=== PATIENT | male | born 1950 | race Caucasian/White ===

== ENCOUNTER → 2018-10-02 08:05 | Outpatient (CLI) | payer MEDICARE, MEDICAID ==
[~2018-10-02 08:05] MED LIST: ALDACTONE25 MG PO; COREG12.5 MG PO; COZAAR100 MG PO; FUROSEMIDE40 MG PO; LIPITOR20 MG PO
[2018-10-11 11:53] VITALS: BMI 34.9
== END | disposition home or self-care (01) ==
LOC: D.HCCARDIO 08:05
PROVIDERS: ATTEND Internal Medicine Cardiovascular Disease
DX: I20.9 Angina pectoris, unspecified (principal)

== ENCOUNTER 2018-10-11 10:55 | Outpatient (CLI) | payer MEDICARE, MEDICAID ==
[~2018-10-11] VITALS: Ht 175.3 cm; Wt 107.3 kg
--- NOTE | ~2018-10-11 | HEMODYNAMI ---
PATIENT:PRAVIN HAMILTON MEDICAL RECORD: [id number] : 52 LOCATION:[facility] ADMISSION DATE: 10/11/18 Generatedon:10/11/201814:38 Patient name: PRAVIN HAMILTON Patient #: [id number] SSN: [id number] : 1950 Date of study: 10/11/2018 Page: Of Hemodynamic Procedure Report Patient Data Patient Demographics Procedure consent was obtained First Name: PRAVIN Gender: Male Last Name: JOY : 1950 Patient #: [id number] Age: 68 year(s) Race: SSN: [id number] Additional ID: [id number] Contact details [address]: [address] [place] [address] State: [place] City: [place] Zip code: [address] Past Medical History Performed procedures and imaging results Date Procedure Procedure Results Comments Stress testing with Positive SPECT MPI Allergies: No allergy information Admission Admission Data Admission Date: 10/11/2018 Admission Time: 10:55 Height (in.): 68.9 BSA: 2.21 (m2) Height (cm.): 175 BMI: 34.94 (kg/m2) Weight (lbs.): 235.9 Weight (kg.): 107 Lab Results Lab Result Date: 10/11/2018 Lab Result Time: 0:00 Biochemistry Name Units Result Min Max BUN mg/dl 18 --(---*)-- 7 18 Creatinine mg/dl 1.1 --(--*-)-- 0.6 1.3 eGFR ml/min 70.99447 *-(----)-- 90 120 NONAFRICAN CBC Name Units Result Min Max Hematocrit % 41.4 -*(----)-- 42 54 Hemoglobin g/dl 14.6 --(-*--)-- 13.5 17.5 Procedure Procedure Types Cath Procedure Diagnostic Procedure C LH w/Coronaries Sedation Charges Moderate Sedation up to 15 minutes Procedure Description Procedure Date Procedure Date: 10/11/2018 Procedure Start Time: 14:15 Procedure End Time: 14:35 Procedure Staff Name Function Pratikkaran Mannley RT Scrub Carlos Alberto Heard RN Nurse Charlie Clark MD Performing Physician Mary Grace Chacon RT Monitor Cesia Gayle RT Scrub Susanne Rivera RT Monitor Procedure Data Cath Procedure Fluoroscopy Diagnostic fluoroscopy Total fluoroscopy Time: 5.1 time: 5.1 min min Diagnostic fluoroscopy Total fluoroscopy dose: dose: 1132 mGy 1132 mGy Contrast Material Contrast Material Type Amount (ml) Isovue 300 113 Entry Location Entry Primary Successful Side Size Upsize Upsize Entry Closure Arana ccessful Closure Location (Fr) 1 (Fr) 2 (Fr) Remarks Device Remarks Radial Right 6 Fr Mechanical artery Short Compression Estimated blood loss: 5 ml Diagnostic catheters Device Type Used For End Catheter Placement DIAGNOSTIC [place] 110cm 5 Procedure Fr catheter ([id number]) DIAGNOSTIC JL 3.5 5Fr Multi-vessel catheter ([id number]) Angiography DIAGNOSTIC AR MOD 5Fr Right Coronary Catheter ([id number]) Angiography Procedure Complications No complications Procedure Medications Medication Administration Route Dosage Oxygen etCO2 Nasal cannula 2 l/min Zofran I.V. 4 mg Lidocaine 2% added to field 20 Heparin Flush Bag added to field 2 bags (1000units/500ml NS) 0.9% NaCl I.V. 100 ml/hr Radial Cocktail I.A. 1 syringe (Verapamil 2mg/Nitro 400mcg/Heparin 1500units) Versed I.V. 2 mg Fentanyl I.V. 100 mcg Fentanyl I.V. 25 mcg Hemodynamics Rest BSA: 2.21 (m2) HGB: 14.6 (g/dl) O2 Consumption: Estimated: 252.02 (ml/min) O2 Co nsumption indexed: Estimated:114.04 (ml/min/m) Heart Rate: 64 (bpm) Pressure Samples Time Site Value (mmHg) Purpose Heart Use Rate(bpm) 14:19 LV 129/17,17 Snapshot 75 14:20 LV 121/5,8 Pullback 77 14:20 AO 204/135(129) Pullback 77 Gradients Valve Time Site 1 Site 2 Mean SEP/DFP Peak To Heart Use (mmHg) (sec/min) Peak Rate (mmHg) (bpm) Aortic 14:20 LV AO 0 77 121/5,8 204/135(129) Calculations Valve P-P Mean Valve Index Valve Source Name Gradient Area Flow (cm2) Aortic 0 0 Snapshots Pre Cath Intra NCS Post Cath Vital Signs Time Heart Resp SPO2 etCO2 NIBP (mmHg) Rhythm Pain Sedation Rate (ipm) (%) (mmHg) Status Level (bpm) 14:05:04 63 20 97 41.8 168/94(129) NSR 0 (11) 10(A) , No pain 14:09:30 60 18 96 26.1 154/93(134) NSR 0 (11) 10(A) , No pain 14:13:59 61 39 95 16.4 149/94(122) NSR 0 (11) 10(A) , No pain 14:18:27 65 15 95 35.1 160/99(113) NSR 0 (11) 9(A) , No pain 14:23:02 70 14 94 38.1 155/99(119) NSR 0 (11) 9(A) , No pain 14:27:32 77 16 92 36.6 165/103(123) NSR 0 (11) 9(A) , No pain 14:32:15 74 18 96 34.3 168/80(147) NSR 0 (11) 10(A) , No pain Medications Time Medication Route Dose Verified Delivered Reason Notes Effectiveness by by 14:05:04 Oxygen etCO2 2 l/min Charlie Carcamo used for Nasal St Saad Heard RN procedure cannula 14:05:11 Zofran I.V. 4 mg Charlie Carcam[address] Per St Saad ramires MD 14:05:21 Lidocaine 2% added 20ml Charlie Guerra for local to vial [facility] anesthetic field MD ALLAN 14:05:27 Heparin Flush added 2 bags Charlie Guerra used for Bag to [facility] procedure (1000units/500ml field MD ALLAN NS) 14:05:37 0.9% NaCl I.V. 100 Charlie Carcamo Per ml/hr St Saad ramires MD 14:14:27 Versed I.V. 2 mg Charlie Carcamo for sedation St Saad Heard RN, MD 14:14:34 Fentanyl I.V. 100 mcg Charlie Carcamo for sedation St Saad Heard RN, MD 14:18:31 Fentanyl I.V. 25 mcg Charlie Carcamo for sedation St Saad Heard RN, MD 14:18:39 Radial Cocktail I.A. 1 Charlie Charlie for (Verapamil syringe Eduardo Eduardo vasodilation 2mg/Nitro MD ALLAN 400mcg/Hepari Procedure Log Time Note 13:19:08 Informed consent obtained and on chart 13:20:47 Time tracking: Regular hours (M-F 7:00 - 5:00) 13:20:52 Plan of Care:Hemodynamics will remain stable., Cardiac rhythm will remain stable., Comfort level will be maintained., Respiratory function will remain adequate., Patient/ family verbilizes understanding of procedure., Procedure tolerated without complication., Recovers from procedure without complications.. 13:24:09 Patient allergic to No allergy information 13:28:25 Procedure Status Elective Heart Cath (OP). 13:39:58 Patient Weight : 235.9 lbs 13:40:17 Patient Height : 68.9 inches 13:40:46 Lab Result : Hemoglobin 14.6 g/dl 13:40:46 Lab Result : Hematocrit 41.4 % 13:40:46 Lab Result : eGFR NONAFRICAN 70.25435 ml/min 13:40:46 Lab Result : BUN 18 mg/dl 13:40:46 Lab Result : Creatinine 1.1 mg/dl 13:43:24 Carlos Alberto Heard RN sent for patient. Start room use. 13:53:37 Patient received from Pre/Post Procedure Room to CCL 1 Alert and oriented. Tansferred to table in Supine position. 13:53:38 Correct patient and procedure confirmed by team. 13:53:38 Warm blankets applied, and jovana hugger turned on for patient comfort. 13:53:39 ECG and BP/O2 sat monitors applied to patient. 14:03:33 Vital chart was started 14:03:35 Baseline sample Acquired. 14:03:40 Rhythm: sinus rhythm 14:03:41 Full Disclosure recording started 14:03:55 H&P Date Dictated: 09/24/2018 Within 30 days and on chart., H&P Addendum completed by physician on day of procedure. (MUST COMPLETE FOR ALL OUTPATIENTS). 14:03:58 Pre-procedure instructions explained to patient. 14:03:59 Pre-op teaching completed and patient verbalized understanding. 14:04:06 Patient NPO since Midnight. 14:04:08 Family in patients room. 14:04:11 Is patient on blood thinner?No 14:04:21 Patient diabetic? No. 14:04:56 Previous problem with sedation/anesthesia? Yes NAUSEA AT TIMES 14:04:59 Snore? Yes 14:05:00 Sleep apnea? No 14:05:04 Oxygen 2 l/min etCO2 Nasal cannula was administered by Carlos Alberto Heard RN; used for procedure; 14:05:11 Zofran 4 mg I.V. was administered by Carlos Alberto Heard RN; Per physician; 14:05:21 Lidocaine 2% 20ml vial added to field was administered by Charlie Clark MD; for local anesthetic; 14:05:27 Deviated septum? No 14:05:27 Heparin Flush Bag (1000units/500ml NS) 2 bags added to field was administered by Charlie Clark MD; used for procedure; 14:05:34 Opens mouth fully? Yes 14:05:35 Sticks out tongue? Yes 14:05:37 0.9% NaCl 100 ml/hr I.V. was administered by Carlos Alberto Heard RN; Per physician; 14:05:40 Airway obstruction? No ASTHMA 14:05:45 Dentures? No ? 14:05:48 Modified Paolo's test Ulnar < 7 seconds 14:05:49 Patient pain scale 0/10 ?. 14:06:00 IV patent on arrival in left hand with 0.9% NaCl at [facility]. 14:06:02 Lab results completed and on chart. 14:06:05 Right Radial & Right Groin area was prepped with chlora-prep and draped in sterile fashion 14:06:06 Sharps counted by scrub and verified by R.N. 14:06:06 Alarms reviewed by R. N. 14:06:11 Use device set Radial Dx or PCI 14:06:13 Bag Decanter (2001S) opened to sterile field. 14:06:13 ACIST Syringe (51842) opened to sterile field. 14:06:14 Tegaderm 4 x 4 (1626W) opened to sterile field. 14:06:14 ACIST Manifold (24249) opened to sterile field. 14:06:14 ACIST Hand Control (23721) opened to sterile field. 14:06:16 Medline Cath Pack ([id number]) opened to sterile field. 14:06:17 MBrace Wrist Support ([id number]) opened to sterile field. 14:06:18 SHEATH 6FR RAIN (6298436) opened to sterile field. 14:06:18 EMERALD Guide Wire (240-128) opened to sterile field. 14:12:43 Zero performed for pressure channel P1 14:12:45 --------ALL STOP TIME OUT------ 14:12:46 Final Timeout: patient, procedure, and site verified with staff and physician. All members of the team are in agreement. 14:12:58 Right Radial & Right Groin site verified by team. 14:13:02 Fire Safety Assessment: A--An alcohol-based skin anteseptic being used preoperatively., C--Open oxygen or nitrous oxide is being used., D--An ESU, laser, or fiber-optic light is being used. 14:13:14 2) 60-89 Mildly reduced kidney function, and other findings (as for stage 1) point to kidney disease. 14:13:27 Physical assessment completed. ASA score P 2 - A patient with mild systemic disease as per Charlie Clark MD. 14:13:30 Maximum allowable contrast dose (3.7 X eGFR X 0.75)186 ml. 14:13:33 Sedation plan: IV Moderate Sedation Medication:Versed, Fentanyl 14:14:27 Versed 2 mg I.V. was administered by Carlos Alberto Heard RN; for sedation; 14:14:34 Fentanyl 100 mcg I.V. was administered by Carlos Alberto Heard RN; for sedation; 14:15:23 Procedure started. 14:15:34 Local anesthetic to right radial artery with Lidocaine 2% by Charlie Clark MD.INITIAL ACCESS ONLY 14:17:53 A 6 Fr Short sheath was inserted into the Right Radial artery 14:17:56 A DIAGNOSTIC [place] 110cm 5 Fr catheter ([id number]) was advanced over the wire and used for Procedure. 14:18:31 Fentanyl 25 mcg I.V. was administered by Carlos Alberto Heard RN; for sedation; 14:18:39 Radial Cocktail (Verapamil 2mg/Nitro 400mcg/Heparin 1500units) 1 syringe I.A. was administered by Charlie Clark MD; for vasodilation; 14:19:55 LV gram done using FLOR 14:20:00 Injector settings: Ml/sec: 7, Volume: 15, 14:20:07 LV hemodynamics recorded. 14:20:18 EF : 50 % 14:22:19 LCA angiography performed. 14:23:30 UNABLE TO ENGAGE LCA AND RCA 14:23:31 Catheter exchanged over wire. 14:24:55 A DIAGNOSTIC JL 3.5 5Fr catheter ([id number]) was advanced over the wire and used for Multi-vessel Angiography. 14:25:26 LCA angiography performed. 14:25:29 Injector settings: Ml/sec: 3, Volume: 6, 14:27:52 Catheter removed. 14:28:08 A DIAGNOSTIC AR MOD 5Fr Catheter ([id number]) was advanced over the wire and used for Right Coronary Angiography. 14:30:00 RCA angiography performed. 14:30:03 Injector settings: Ml/sec: 3, Volume: 6, 14:30:22 Catheter removed. 14:31:40 TR BAND Large ([id number]) opened to sterile field. 14:31:49 Sheath removed intact; hemostasis achieved with Mechanical Compression to the Right Radial artery. 14:31:51 Procedure ended.(Physican Out) 14:32:09 Fluoroscopy time 05.10 minutes. 14:32:14 Fluoroscopy dose: 1132 mGy 14:32:14 Flurop Dose total: 1132 14:32:23 Dose Area Product 48396 mGy/cm. 14:32:33 Contrast amount:Isovue 300 113ml. 14:32:35 Sharps counted by scrub and verified by R.N. 14:32:37 Insertion/operative site no bleeding no hematoma. 14:32:43 TR band inflated with 10cc of air. 14:32:50 Post right radial artery:stable 14:32:53 Post Procedure Pulses reassessed and unchanged 14:32:56 Post procedure rhythm: unchanged. 14:32:59 Estimated blood loss: 5 ml 14:33:04 Post procedure instruction explained to patient.Patient verbalizes understanding. 14:33:05 Patient needs reinforcement of post procedure teaching. 14:33:16 Procedure type changed to Cath procedure, Diagnostic procedure, LHC, LHC w/Coronaries, Sedation Charges, Moderate Sedation up to 15 minutes 14:33:17 Procedure and supply charges have been captured, reviewed, submitted and are correct. 14:33:22 Procedure Complication : No complications 14:33:25 Vital chart was stopped 14:33:26 See physician's report for complete and final results. 14:33:34 Report given to Pre/Post Procedure Room. 14:35:04 Patient transfered to Pre/Post Procedure Room with Stretcher. 14:35:06 Full Disclosure recording stopped 14:35:06 Procedure ended. 14:35:12 End room use (Document Last) Device Usage Item Name Manufacture Quantity Catalog Hospital Part Current Minima l Lot# / Number Charge Number Stock Stock Serial# Code ACIST Acist 1 56302 [id number] 246299 981644 20 Syringe Medical (84241) Systems Inc Bag Microtek 1 2001S 303648 27268 656885 5 Decanter Medical Inc. (2001S) ACIST Hand Acist 1 89256 397363 265083 862377 5 Control Medical (38726) Systems Inc ACIST Acist 1 08623 394037 000768 994599 5 Manifold Medical (28702) Systems Inc Tegaderm 4 3M 1 1626W 936926 258830 452487 5 x 4 (1626W) Medline Medline 1 [id number] 691859 65415 574608 5 Cath Pack ([id number]) MBrace Advanced 1 140-0250-00 419364 41831 644919 5 Wrist Vascular Support Dynamics ([id number]) EMERALD Cardinal 1 502-455 755822 880383 013874 5 Guide Wire Health (502455) SHEATH 6FR Cardinal 1 1691038 056144 6778954 768676 5 [facility] (1547162) DIAGNOSTIC Terumo 1 40-5013 971199 351312 976104 5 [place] 110cm 5 Fr catheter (214553) DIAGNOSTIC Cardinal 1 [id number] 462333 863672 225182 5 JL 3.5 5Fr Health catheter (391184X) DIAGNOSTIC Cardinal 1 [id number] 388175 835721 192066 15 AR MOD 5Fr Health Catheter (017152W) TR BAND Terumo 1 [id number] 258125 164956 234113 40 Large ([id number]) Signature Audit [place] Stage Time Signature Unsigned Intra-Procedure 10/11/2018 Susanne Miguel 2:38:06 PM RT(R) Signatures Nurse : Carlos Alberto Heard RN Signature : Date : Time : Performing Physician : Signature : Charlie Eduardo MD Date : Time : Monitor : Mary Grace Chacon Signature : RT Date : Time : Monitor : Susanne Miguel RT Signature : Date : Time : [address] [place] [address]
[2018-10-11] MEDS ORDERED: LIPITOR20 MG PO (11:43)
[2018-10-11] MEDS ORDERED: COZAAR100 MG PO (11:43)
[2018-10-11] MEDS ORDERED: FUROSEMIDE40 MG PO (11:43)
[2018-10-11] MEDS ORDERED: COREG12.5 MG PO (11:43)
[2018-10-11 11:53] VITALS: BP 178/93; Ht 175.3 cm; Wt 107.3 kg
[2018-10-11 12:18] LABS: BASOPHILS 0.3 % (0-2); EOSINOPHILS 3.7 % (0-7); HEMATOCRIT 41.4 % (42.0-54.0); HEMOGLOBIN 14.6 g/dL (13.5-17.5); IMMATURE GRANULOCYTES 0.3 % (0-5); LYMPHOCYTES 27.9 % (15-50); MCH 31.5 pg (26.0-34.0); MCHC 35.3 g/dL (31.0-37.0); MCV 89.2 fL (80.0-100.0); MEAN PLATELET VOLUME 10.7 fL (7.4-10.4); MONOCYTES 11.2 % (2-11); NEUTROPHILS 56.6 % (40-80); PLATELET COUNT 223 10x3/uL (130-400); RBC 4.64 10x6/uL (4.20-6.10); RDW 12.6 % (11.5-14.5); WBC 6.2 10x3/uL (4.8-10.8)
[2018-10-11 12:35] LABS: CHOL - HDL RATIO 3.9 ratio (2.3-4.9); LDL-HDL RATIO 1.9 ratio (1.5-3.5)
[2018-10-11 12:42] LABS: ANION GAP 9.4 mmol/L (8-16); CALCIUM 9.3 mg/dL (8.5-10.1); CARBON DIOXIDE 30.7 mmol/L (21.0-32.0); CREATININE - SERUM 1.1 mg/dL (0.6-1.3); POTASSIUM - SERUM 4.1 mmol/L (3.5-5.1)
--- NOTE | 2018-10-11 14:47 | NUR ---
PT ARRIVED BY STRETCHER. PLACED ON MONITORS. ASSESSMENT COMPLETED. FAMILY AT BEDSIDE. DR. MITCHELL ROUNDED AND UPDATED PT AND FAMILY. CALL LIGHT WITHIN REACH.
[2018-10-11] MEDS ORDERED: ALDACTONE25 MG PO (14:54)
--- NOTE | 2018-10-11 15:00 | NUR ---
PT SITTING UP AND DRINKIN WATER. DENIES NAUSEA. RIGHT RADIAL TR BAND IN PLACE. NO BLEEDING/HEMATOMA NOTED. VSS.
--- NOTE | 2018-10-11 15:30 | NUR ---
3cc OF AIR REMOVED FROM Z BAND. NO BLEEDING/HEMATOMA NOTED. CALL LIGHT WITHIN REACH. FAMILY AT BEDSIDE. VSS.
--- NOTE | 2018-10-11 15:45 | NUR ---
3cc OF AIR REMOVED FROM TR BAND. TOLERATED WELL. NO BLEEDING/HEMATOMA NOTED. CAP REFILL < 3 SECS TO RIGHT HAND. RIGHT HAND WARM TO TOUCH. VSS. FAMILY AT BEDSIDE.
--- NOTE | 2018-10-11 16:00 | NUR ---
3cc OF AIR REMOVED FROM Z BAND. TOLERATING WELL. VSS. NO BLEEDING/HEMATOMA NOTED.
--- NOTE | 2018-10-11 16:15 | NUR ---
RIGHT ARM PIV D/C'D WITH CATH TIP INTACT. PT TOLERATED WELL. PT INSTRUCTED TO GET UP AND DRESSED. 3cc OF AIR REMOVED FROM RIGHT RADIAL TR BAND. NO BLEEDING/HEMATOMA NOTED. FAMILY AT BEDSIDE TO ASSIST PT.
--- NOTE | 2018-10-11 16:20 | NUR ---
RIGHT RADIAL TR BAND REMOVED. NO BLEEDING/HEMATOMA NOTED. DISCUSSED DISCHARGE INSTRUCTIONS WITH PT AND PT'S FAMILY. THEY VOICED UNDERSTANDING.
--- NOTE | 2018-10-11 16:35 | NUR ---
RIGHT WRIST DRESSING C/D/I. NO S/S OF HEMATOMA NOTED. RIGHT WRIST BRACE IN PLACE. PT INSTRUCTED TO REMOVE BRACE 2 HOURS AFTER ARRIVAL HOME. HE VOICED UNDERSTANDING. PT TAKEN OUT TO VEHICLE. NO S/S OF DISTRESS NOTED. ALL BELONGINGS AND PAPERWORK IN HAND.
--- NOTE | 2018-10-18 08:42 | OP ---
PATIENT NAME: PRAVIN HAMILTON MEDICAL RECORD: [id number] :52 LOCATION:[facility] ADMISSION DATE: SURGEON: SHIV BRUNO MD DATE OF OPERATION: 10/11/2018 PROCEDURE: Left heart catheterization, selective coronary angiography, right radial approach. CATHETERS: Radial sheath, [place] catheter, JL3.5 and AR1 catheters as well. FINDINGS: Left ventriculography in 30-degree FLOR view; normal wall motion and normal systolic function. CORONARY ANATOMY: LEFT MAIN: Left main is free of disease. LAD: Free of disease in the diagonal system. CIRCUMFLEX: Circumflex is free of disease in the marginal system. RIGHT CORONARY ARTERY: Dominant artery, gives rise to PDA, free of disease. IMPRESSION: Normal LV systolic function. Normal coronary anatomy. TRANSINT:[id number] Voice Confirmation ID: [id number] DOCUMENT ID: [id number] SHIV BRUNO MD at 0842 CC: [id number] DICTATION DATE: 10/11/18 1441 PRESSURIZATION MECHANIC: 10/11/18 1530 DEP CLI 10/11/18 [place] [id number] [facility] [place] [address]
== END 2018-10-11 16:35 | disposition home or self-care (01) ==
LOC: D.CATH 10:55
PROVIDERS: ATTEND Internal Medicine Interventional Cardiology
DX: I20.9 Angina pectoris, unspecified (principal); Z01.812 Encounter for preprocedural laboratory examination